=== PATIENT | female | born 1965 ===

== ENCOUNTER 2024-07-05 06:06 | Day surgery (SDC) | payer OTHER ==
[2024-07-05] MEDS ORDERED: MIDAZOLAM HCL 2 MG/2 ML VIAL IV ONE (15:00)
[2024-07-05] MEDS ORDERED: DIPHENHYDRAMINE HCL 50 MG/ML VIAL 1ML IV ONE (15:00)
[2024-07-05] MEDS ORDERED: FentaNYL CITRATE/PF 50MCG/ML 2ML VIAL IJ ONE (15:00)
== END 2024-07-05 14:20 | disposition home or self-care (01) ==
LOC: AMB-ENDOS 06:06
PROVIDERS: ATTEND Surgery
DX: K63.5 Polyp of colon (principal); D12.8 Benign neoplasm of rectum; D12.5 Benign neoplasm of sigmoid colon